=== PATIENT | male | born 1985 | race Caucasian/White ===

== ENCOUNTER 2016-10-16 10:08 | Emergency (ER) | payer OTHER ==
[2016-10-16] MEDS ORDERED: ACETAMINOPHEN 325 MG TABLET PO ONE (10:33)
[2016-10-16] MEDS ORDERED: ACETAMINOPHEN 325 MG TABLET PO STA (10:34)
[2016-10-16] MEDS ORDERED: DEXAMETHASONE 10 MG/ML VIAL PO STA (10:39)
[2016-10-16] MEDS ORDERED: ONDANSETRON ODT 4 MG TABLET ONE (10:44)
[2016-10-16] MEDS ORDERED: ONDANSETRON ODT 4 MG TABLET TL STA (10:44)
[2016-10-16] MEDS ORDERED: DEXAMETHASONE 10 MG/ML VIAL ONE (11:06)
[2016-10-16] MEDS ORDERED: CHERRY SYRUP 10 ML UDC PO ONE (11:07)
[2016-10-16] MEDS ORDERED: cefTRIAXone 1 GM VIAL IM STA (11:37)
[2016-10-16] MEDS ORDERED: cefTRIAXone 1 GM VIAL ONE (11:49)
[2016-10-16] MEDS ORDERED: LIDOCAINE-MPF 1% 5 ML VIAL ONE (11:49)
[2016-10-16] MEDS ORDERED: IBUPROFEN 600 MG TABLET PO ONE (11:51)
[2016-10-16] MEDS ORDERED: IBUPROFEN 600 MG TABLET PO STA (12:00)
== END 2016-10-16 12:22 | disposition home or self-care (01) ==
DX: H66.001 Acute suppurative otitis media without spontaneous rupture of ear drum, right ear (principal); F17.200 Nicotine dependence, unspecified, uncomplicated; Z88.5 Allergy status to narcotic agent; Z88.2 Allergy status to sulfonamides
CPT/HCPCS: 71020; 87275; 87276; 96372; 99283; 99284; A9270; Q0162